=== PATIENT | female | born 1975 | race Two or more races ===

== ENCOUNTER 2018-02-15 09:51 | Emergency (ER) | payer OTHER ==
[2018-02-15] MEDS: HYDROCODONE/APAP (5/325) TAB PO (10:04)
== END 2018-02-15 11:13 | disposition home or self-care (01) ==
LOC: FTE 09:51
DX: S92.421A Displaced fracture of distal phalanx of right great toe, initial encounter for closed fracture (principal); J45.909 Unspecified asthma, uncomplicated; X58.XXXA Exposure to other specified factors, initial encounter; Y92.89 Other specified places as the place of occurrence of the external cause
CPT/HCPCS: 73630; 99283-25

== ENCOUNTER 2019-01-23 10:07 | Emergency (ER) | payer OTHER | END 2019-01-23 11:03 | disposition home or self-care (01) | LOC: FTE 10:07 | DX: T22.212A Burn of second degree of left forearm, initial encounter (principal); J45.909 Unspecified asthma, uncomplicated; W86.8XXA Exposure to other electric current, initial encounter; Y92.89 Other specified places as the place of occurrence of the external cause | CPT/HCPCS: 99282 ==